=== PATIENT | male | born 1965 | race Caucasian/White ===

== ENCOUNTER 2019-05-24 09:12 | Day surgery (SDC) | payer OTHER ==
[~2019-05-24] VITALS: Ht 170.2 cm; Wt 65.8 kg
[2019-05-24 09:23] VITALS: BP 142/81
[2019-05-24 13:36] VITALS: BP 129/90
== END 2019-05-24 12:50 | disposition home or self-care (01) ==
LOC: GI 09:12 → OR 11:30 → GI 11:30
DX: Z12.11 Encounter for screening for malignant neoplasm of colon (principal); F17.210 Nicotine dependence, cigarettes, uncomplicated; Z79.899 Other long term (current) drug therapy; Z86.19 Personal history of other infectious and parasitic diseases
CPT/HCPCS: 45378; J1200; J1610; J2250; J2310; J3010; J3490